=== PATIENT | female | born 1985 | race Caucasian/White ===

== ENCOUNTER 2020-02-10 22:54 | Emergency (ER) | payer BC ==
[2020-02-10] MEDS ORDERED: hydrOXYzine HCl 50 MG/ML SDV IM ONE (23:17)
--- NOTE | 2020-02-10 23:22 | EDM.PDOC ---
ED HPI GENERAL MEDICAL PROBLEM - General Chief Complaint: Headache Stated Complaint: MIGRAINE Time Seen by Provider: 02/10/20 23:18 Source of Information: Reports: Patient History Limitations: Reports: Other (Pain) - History of Present Illness INITIAL COMMENTS - FREE TEXT/NARRATIVE: Joaquina is a 34 yo female with severe headache. Started insidiously on Friday,was seen in ED at [facility]. CT was negative,reportedly. Improved after parenteral narcotics. Restarted this morning. Bitemporal,associated with photophobia,vomiting. She denies any fever,sore throat,chest pain,fatigue or lo ss of taste or smell. She endorses being in a lot of stress.No previous h/o migraines,but has had MDD and Anxiety. Headache Pain Score (Numeric/FACES): 10 - Related Data Allergies Allergy/AdvReac Type Severity Reaction Status Date / Time No Known Allergies Allergy Verified 02/10/20 23:00 Home Meds: Home Meds Sertraline HCl [Zoloft] 100 mg PO DAILY 02/10/20 [History] Social & Family History - Family History Psychiatric: Reports: Anxiety, Depression - Tobacco Use Smoking Status *Q: Unknown Ever Smoked ED ROS GENERAL - Review of Systems Review Of Systems: Comprehensive ROS is negative, except as noted in HPI. - Physical Exam Exam: See Below Exam Limited By: No Limitations General Appearance: Alert Neuro Exam (Abbreviated): Alert, Oriented, CN II-XII Intact Psychiatric: Tearful Skin Exam: Warm Course - Vital Signs Last Recorded V/S: Last Vital Signs Temp 97.9 F 02/10/20 23:04 Pulse 80 02/10/20 23:04 Resp 18 02/10/20 23:04 BP 144/77 H 02/10/20 23:04 Pulse Ox 99 02/10/20 23:04 - Orders/Labs/Meds Orders: Active Orders 24 hr Category Date Time Status Meperidine [Demerol] Med 02/10/20 23:30 Ordered 100 mg IM ONETIME hydrOXYzine HCL [Vistaril] Med 02/10/20 23:17 Once 50 mg IM ONETIME ONE Departure - Departure Time of Disposition: 23:21 Disposition: Home, Self-Care 01 Clinical Impression: Migraine - Discharge Information Sepsis Event Note (ED) - Evaluation Sepsis Screening Result: No Definite Risk - Focused Exam Vital Signs: Vital Signs Temp Pulse Resp BP Pulse Ox 02/10/20 23:04 97.9 F 80 18 144/77 H 99 - Problem List & Annotations (1) Migraine SNOMED Code(s): 05206100 Code(s): G43.909 - MIGRAINE, UNSP, NOT INTRACTABLE, WITHOUT STATUS MIGRAINOSUS Status: Acute - Problem List Review Problem List Initiated/Reviewed/Updated: Yes - My Orders Last 24 Hours: My Active Orders 02/10/20 23:17 hydrOXYzine HCL [Vistaril] 50 mg IM ONETIME ONE 02/10/20 23:30 Meperidine [Demerol] 100 mg IM ONETIME - Assessment/Plan Last 24 Hours: My Active Orders 02/10/20 23:17 hydrOXYzine HCL [Vistaril] 50 mg IM ONETIME ONE 02/10/20 23:30 Meperidine [Demerol] 100 mg IM ONETIME Plan: Demerol and Vistaril IM
[2020-02-10] MEDS ORDERED: Meperidine PF 100 MG/ML Syringe IM SCH (23:30)
== END 2020-02-10 23:50 | disposition home or self-care (01) ==
LOC: FB.ED 22:54
DX: G43.909 Migraine, unspecified, not intractable, without status migrainosus (principal); F41.9 Anxiety disorder, unspecified; F32.9 Major depressive disorder, single episode, unspecified; Z79.899 Other long term (current) drug therapy; Z20.828 Contact with and (suspected) exposure to other viral communicable diseases
CPT/HCPCS: 87635; 96372; 99283; 99284; J2175; J3410; U0002

== ENCOUNTER 2021-01-23 17:38 | Emergency (ER) | payer BC ==
--- NOTE | 2021-01-23 18:28 | EDM.PDOC ---
ED HPI GENERAL MEDICAL PROBLEM - General Chief Complaint: Respiratory Problem Stated Complaint: LUNG ISSUSE Time Seen by Provider: 01/23/21 17:55 Source of Information: Reports: Patient History Limitations: Reports: No Limitations - History of Present Illness INITIAL COMMENTS - FREE TEXT/NARRATIVE: Patient presented to the ED because of nausea, diarrhea, weakness since she was diagnosed with Covid 13 days ago. 6 days ago she started to have dyspnea and is getting worse. There is no fever, chills, but have a non productive cough.She was told by the [facility] to go to the ED because she might have PE. - Related Data Allergies Allergy/AdvReac Type Severity Reaction Status Date / Time No Known Allergies Allergy Verified 02/10/20 23:00 Home Meds: Home Meds Sertraline HCl [Zoloft] 100 mg PO DAILY 02/10/20 [History] Potassium Chloride [Klor-Con M20] 40 meq PO TID #12 tab.er.prt 01/23/21 [Rx] Social & Family History - Family History Psychiatric: Reports: Anxiety, Depression ED ROS GENERAL - Review of Systems Review Of Systems: See Below Constitutional: Reports: Weakness, Fatigue HEENT: Reports: No Symptoms Respiratory: Reports: Shortness of Breath, Cough Cardiovascular: Reports: No Symptoms Endocrine: Reports: No Symptoms GI/Abdominal: Reports: No Symptoms, Diarrhea, Nausea : Reports: No Symptoms Musculoskeletal: Reports: No Symptoms Skin: Reports: No Symptoms Neurological: Reports: No Symptoms Psychiatric: Reports: No Symptoms ED EXAM, GENERAL - Physical Exam Exam: See Below Exam Limited By: No Limitations General Appearance: Alert, No Apparent Distress Eye Exam: Bilateral Eye: PERRL Ears: Normal External Exam, Normal Canal Nose: Normal Inspection, Normal Mucosa, No Blood Throat/Mouth: Normal Inspection, Normal Lips, Normal Teeth Head: Atraumatic, Normocephalic Neck: Normal Inspection, Supple, Non-Tender, Full Range of Motion Respiratory/Chest: No Respiratory Distress, Lungs Clear, Normal Breath Sounds, No Accessory Muscle Use, Chest Non-Tender Cardiovascular: Normal Peripheral Pulses, Regular Rate, Rhythm, No Edema, No Gallop, No JVD, No Murmur GI/Abdominal: Normal Bowel Sounds, Soft, Non-Tender, No Organomegaly Extremities: Normal Inspection, Normal Range of Motion, Non-Tender, No Pedal Edema, Normal Capillary Refill Neurological: Alert, Oriented, CN II-XII Intact, Normal Cognition, Normal Gait, Normal Reflexes, No Motor/Sensory Deficits Psychiatric: Normal Affect, Normal Mood Skin Exam: Warm, Intact Course - Vital Signs Text/Narrative:: Lab/CXR result was reviewed and discussed with patient Vi denis 40 meq po x1 Last Recorded V/S: Last Vital Signs Temp 36.8 C 01/23/21 17:40 Pulse 73 01/23/21 17:40 Resp 16 01/23/21 17:40 BP 114/70 01/23/21 17:40 Pulse Ox 95 01/23/21 17:40 - Orders/Labs/Meds Orders: Active Orders 24 hr Category Date Time Status Chest 1V Frontal [CR] Stat Exams 01/23/21 18:14 Taken Labs: Laboratory Tests 01/23/21 01/23/21 01/23/21 Range/Units 18:23 18:23 18:23 WBC 5.7 (3.0-10.3) x10-3/uL RBC 4.07 (3.60-5.20) x10(6)uL Hgb 11.4 (11.4-15.5) g/dL Hct 33.8 L (34.2-48.2) % MCV 83.1 (76.7-100.5) fL MCH 28.0 (23.9-33.9) pg MCHC 33.7 (31.9-34.8) g/dL RDW 13.5 (12.3-16.5) % Plt Count 317 (151-488) x10(3)uL MPV 6.9 L (7.1-12.4) fL Neut % (Auto) 52.1 (30.8-76.2) % Lymph % (Auto) 36.0 (18.4-52.1) % [place] % (Auto) 10.6 (4.4-15.7) % Eos % (Auto) 1.0 (0.6-8.1) % Baso % (Auto) 0.3 (0.2-1.5) % Neut # (Auto) 3.0 (1.5-6.3) x10-3/uL Lymph # (Auto) 2.0 (1.0-4.4) x10-3/uL [place] # (Auto) 0.6 (0.3-1.0) x10-3/uL Eos # (Auto) 0.1 (0.0-0.8) x10-3/uL Baso # (Auto) 0.0 (0.0-0.1) x10-3/uL D-Dimer, Quantitative 0.35 (0.0-0.59) mg/LFEU Sodium 143 (135-145) mmol/L Potassium 3.3 L (3.5-5.3) mmol/L Chloride 105 (100-110) mmol/L Carbon Dioxide 31 (21-32) mmol/L BUN 12 (7-18) mg/dL Creatinine 0.7 (0.55-1.02) mg/dL Est Cr Clr Drug Dosing TNP Estimated GFR (MDRD) > 60 (>60) BUN/Creatinine Ratio 17.1 (9-20) Glucose 98 (80-116) mg/dL Calcium 8.3 L (8.6-10.2) mg/dL Meds: Medications Discontinued Medications Generic Name Dose Route Start Last Admin Trade Name Freq PRN Reason Stop Dose Admin Potassium Chloride 40 meq 01/23/21 18:47 01/23/21 18:52 Potassium Chloride 20 Meq Tab.Er PO 01/23/21 18:48 40 meq NOW STA Administration Departure - Departure Time of Disposition: 19:00 Disposition: Home, Self-Care 01 Condition: Good Clinical Impression: Post-COVID syndrome, Hypokalemia - Discharge Information Prescriptions: Potassium Chloride [Klor-Con M20] 40 meq PO TID #12 tab.er.prt Instructions: COVID-19 Frequently Asked Questions, Hypokalemia Forms: ED Department Discharge Additional Instructions: Please read discharge instructions on Post Covid Syndrome Take your medicine for nausea as prescribed by your doctor Imodium 2 tablets every 6 hours until your diarrhea stops Klor con 20 meq, 2 tablets 3 times daily for 2 days Follow up as needed Sepsis Event Note (ED) - Focused Exam Vital Signs: Vital Signs Temp Pulse Resp BP Pulse Ox 01/23/21 17:40 36.8 C 73 16 114/70 95 - My Orders Last 24 Hours: My Active Orders 01/23/21 18:14 Chest 1V Frontal [CR] Stat - Assessment/Plan Last 24 Hours: My Active Orders 01/23/21 18:14 Chest 1V Frontal [CR] Stat
[2021-01-23] MEDS ORDERED: Potassium Chloride 20 MEQ Tab.ER PO STA (18:47)
--- NOTE | 2021-01-24 11:09 | CR ---
CHEST ONE VIEW INDICATION: Dyspnea post COVID. AP portable upright view of the chest was obtained 01/23/21 - no comparisons. The heart appears slightly enlarged or at the upper limits of normal in size. Bilateral infiltration is noted in the mid to lower lung magana compatible with pneumonia. Some atelectatic change may be present also in the right lower lung field. No significant pleural effusion was seen. IMPRESSION: 1. Bilateral infiltration, etiology could be on the basis of COVID-19 pneumonia but should be correlated clinically. 2. The heart appears somewhat enlarged for age. When clinically possible, full inspiration PA and lateral views of the chest may be helpful for further evaluation. MTDD
== END 2021-01-23 19:15 | disposition home or self-care (01) ==
LOC: FB.ED 17:38
DX: E87.6 Hypokalemia (principal); R05 Cough; R11.0 Nausea; R19.7 Diarrhea, unspecified; Z86.16 Personal history of COVID-19
CPT/HCPCS: 36415; 71045; 80048; 85025; 85379; 99284; A9270